=== PATIENT | female | born 1985 | race African-American/Black ===

== ENCOUNTER 2021-05-14 19:58 | Emergency (ER) | payer OTHER ==
[~2021-05-14] VITALS: Ht 165.1 cm; Wt 65.8 kg
--- NOTE | 2021-05-14 20:36 | NUR ---
BIB COMPLAINING OF RLQ ABD PAIN DESCRIBED SHARP SINCE 11:00 THAT RADIATES TO THE EPIGASTRIC REGION. PAIN IS RATED 8/10 WITH INCREASED PAIN ON PALPATION. REPORTS NORMAL BOWEL HABITS LAST BM 1300 XTODAY. DENIES NASUEA/VOMITTING. VITAL SIGNS STABLE. MD WAS AT BEDSIDE FOR EVAL.
--- NOTE | 2021-05-14 20:45 | NUR ---
URINE SENT TO LAB
[2021-05-14 21:08] LABS: BASOPHILS % (AUTO) 0.2 % (0.0-2.0); EOSINOPHILS % (AUTO) 0.2 % (0.0-6.0); HEMATOCRIT 33 % (33-45); HEMOGLOBIN 10.2 g/dL (11.5-14.8); LYMPHOCYTES # (AUTO) 1.3 K/uL (0.8-4.8); LYMPHOCYTES % (AUTO) 12.8 % (20.0-44.0); MEAN CORPUSCULAR HGB CONC 30 g/dl (31.0-36.0); MEAN CORPUSCULAR VOLUME 69 fL (82-100); MONOCYTES # (AUTO) 0.7 K/uL (0.1-1.30); NEUTROPHILS # (AUTO) 8.3 K/uL (1.8-8.9); NEUTROPHILS % (AUTO) 79.8 % (43.0-81.0); PLATELET COUNT (AUTO) 266 K/uL (150-450); RED BLOOD CELL COUNT(AUTO) 4.87 MIL/uL (4.0-5.2); WHITE BLOOD COUNT (AUTO) 10.4 K/uL (4.3-11.0)
[2021-05-14 21:13] LABS: BILIRUBIN,URINE Negative (NEGATIVE); COLOR,URINE YELLOW (YELLOW); LEUKOCYTE ESTERASE ,URINE Negative (NEGATIVE); NITRITE, URINE Negative (NEGATIVE); PH,URINE 7.5 (5.0-8.0); PROTEIN,URINE Negative (NEGATIVE); UGLUCOSE Negative (NEGATIVE); UROBILINOGEN,URINE 0.2 EU/dL (0.2)
[2021-05-14 21:16] LABS: CALCIUM, SERUM 8.6 mg/dL (8.5-10.1); CREATININE 0.7 mg/dL (0.6-1.3); POTASSIUM 3.6 mmol/L (3.5-5.1)
[2021-05-14 21:21] LABS: ALBUMIN 3.5 g/dL (3.4-5.0); BILIRUBIN,DIRECT 0.1 mg/dL (0.0-0.2); BILIRUBIN,TOTAL 0.5 mg/dL (0.2-1.0); TOTAL PROTEIN, SERUM 7.5 g/dL (6.4-8.2)
[2021-05-14 21:24] LABS: BACTERIA,URINE Few /HPF (None Seen); SQUAMOUS EPITHELIAL CELL,UR Moderate /HPF (None Seen)
--- NOTE | 2021-05-14 21:29 | NUR ---
LEFT FOR CT
[2021-05-14] MEDS ORDERED: DOCU-141 PO (22:41)
[2021-05-14] MEDS ORDERED: CEPH500C2 PO (22:41)
[2021-05-14] MEDS ORDERED: CEPHALEXIN MONOHYDRATE 500 MG CAPSULE PO ONE ×2 (23:00)
[2021-05-14] MEDS ORDERED: IBUP-1955 PO (23:08)
--- NOTE | 2021-05-14 23:10 | NUR ---
Patient discharged to home in stable condition. Written and verbal after care instructions given. Patient verbalizes understanding of instruction.
[2021-05-14 23:15] VITALS: BP 100/68
== END 2021-05-14 23:15 | disposition home or self-care (01) ==
LOC: ER 20:00
DX: N39.0 Urinary tract infection, site not specified (principal); K59.00 Constipation, unspecified; D64.9 Anemia, unspecified; Z79.899 Other long term (current) drug therapy
CPT/HCPCS: 36415; 80048-TC; 80076-TC; 81001; 83690-TC; 84703-TC; 85025-TC

== ENCOUNTER 2022-06-12 20:26 | Emergency (ER) | payer OTHER ==
[~2022-06-12 20:26] MED LIST: CEPH500C2 PO; DOCU-141 PO; IBUP-1955 PO
--- NOTE | 2022-06-12 21:16 | NUR ---
CALLED TO TRIAGE NO ANSWER
--- NOTE | 2022-06-12 21:28 | NUR ---
CALLED TO TRIAGE NOT IN WAITING ROOM
== END 2022-06-12 21:49 | disposition left against medical advice (07) ==
LOC: ER 20:29
DX: Z53.21 Procedure and treatment not carried out due to patient leaving prior to being seen by health care provider (principal)